=== PATIENT | female | born 1975 | race Caucasian/White ===

== ENCOUNTER → 2016-04-25 | Outpatient (CLI) | payer OTHER ==
--- NOTE | 2016-04-25 11:26 | DX ---
Left Foot, Three Views HISTORY: Left foot pain. FINDINGS: There is mild early degenerative change at the first metatarsophalangeal joint with slight joint narrowing and periarticular spurring. No evidence for acute fracture or dislocation. No evidenc e for periarticular erosion or soft tissue calcification. No aggressive osseous lesion. 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
== END ==
LOC: FIMAGING 10:23
PROVIDERS: ATTEND Family Medicine
DX: M79.672 Pain in left foot (principal)

== ENCOUNTER → 2016-10-22 | Outpatient (CLI) | payer OTHER | LOC: FIMAGING 07:26 | PROVIDERS: ATTEND Nurse Practitioner Obstetrics & Gynecology | DX: Z12.31 Encounter for screening mammogram for malignant neoplasm of breast (principal) | CPT/HCPCS: G0202 ==

== ENCOUNTER → 2018-09-22 | Outpatient (CLI) | payer OTHER | LOC: FIMAGING 14:10 ==